=== PATIENT | male | born 1980 | race Caucasian/White ===

== ENCOUNTER 2017-04-14 14:28 | Emergency (ER) | payer MEDICAID ==
[2017-04-14 14:36] VITALS: BP 92/65; PULSE 101; RESP 16; TEMP 98.1; O2SAT 97
--- NOTE | 2017-04-14 15:50 | EDPHY ---
General Narrative: CHIEF COMPLAINT: Pain and cracked skin on hands HISTORY OF PRESENT ILLNESS: Patient complains of pain and cracked area of skin on the knuckles of both hands. This has been present for 7 months. Constant in duration. Worse with changes in weather exposure to water. It is very painful for him and he is asking for "10% relief of my pain." No numbness or tingling. No fever or chills. 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 He has not attempted any medications or any topical creams or lotions for this in 7 months. He is asking for narcotics. He has no other associated complaints or modifying factors. REVIEW OF SYSTEMS: Ten systems reviewed and are negative unless otherwise noted in the HPI PCP: None SPECIALISTS: None PAST MEDICAL HISTORY: None EXAMINATION General Appearance: Alert, no distress Head: normocephalic, atraumatic Eyes: Pupils equal and round, no conjunctival pallor or injection ENT, Mouth: Airway widely patent Neck: Normal inspection, supple Respiratory: No retractions or distress Cardiovascular: Regular rate. Symmetric radial pulses 2+. Neurological: A&O, nonfocal, no wrist drop. Good strength of the interossei in both hands. Skin: Warm and dry, there are areas of eczema and cracked skin over the PIP and the IP of both hands, posteriorly. No bleeding. No cellulitis. Extremities: Tenderness in the area of the skin eczema. No tenderness to the bones of the hands or wrist. Range of motion is symmetric in the extremities. No evidence of tenosynovitis or septic joint. Psychiatric: Mood and affect normal DIFFERENTIAL DIAGNOSES: Including but not limited to eczema, skin cracks dyshidrotic eczema cellulitis MDM: 3:45 p.m. Cracks in the skin of the knuckles on both hands consistent with dry skin. There is no evidence of contact dermatitis. No lesions of the palms of the hands that would suggest Thomson-Felix. There is no signs of infection. The patient is asking for narcotic pain medication and I have declined to prescribe any for him. I would like him to apply lotion topical steroid for 1-2 weeks. I would like him to follow up with primary care physician and/or director of religious life. The patient has been localize that he is not happy with my choice of treatment and would like to leave. He says that he is in a hurry to get back to his work shift he is missing. I provided a tube of dimethicone skin protectant, and I will provide a prescription for triamcinolone topical. - History Smoking Status: Former smoker - Objective Vital Signs: Initial Vital Signs Temperature (C) 98.1 F 04/14/17 14:33 Heart Rate 101 H 04/14/17 14:33 Respiratory Rate 16 04/14/17 14:33 Blood Pressure 92/65 L 04/14/17 14:33 O2 Sat (%) 97 04/14/17 14:33 O2 Delivery Mode Room Air Allergies/Adverse Reactions: imipramine [Imipramine] Allergy (Verified 04/20/14 15:05) Home Medications: Medication Instructions Recorded Triamcinolone 0.1% [Triamcinolone 1 armando TP TID #1 cream 04/14/17 0.1% Cream] Departure - Departure Disposition: Home, Routine, Self-Care Clinical Impression: Cracked skin, Dermatitis Condition: Good Instructions: Corticosteroids (On the skin), Eczema (ED), Dermatitis (ED) Additional Instructions: 1. Apply lotion topically several times daily 2. Topical steroid application 3 times daily 3. Follow up with primary care physician Referrals: NONE *PRIMARY CARE P,. [Primary Care Provider] - As per Instructions [facility],. [Clinic] - As per Instructions Los Bobby MD [Medical Doctor] - As per Instructions Prescriptions: Triamcinolone 0.1% [Triamcinolone 0.1% Cream] 1 armando TP TID #1 cream
== END 2017-04-14 16:02 | disposition home or self-care (01) ==
DX: L30.9 Dermatitis, unspecified (principal); Z87.891 Personal history of nicotine dependence

== ENCOUNTER 2018-05-27 10:21 | Emergency (ER) | payer MEDICAID ==
--- NOTE | 2018-05-27 10:48 | EDPHY ---
General Time Seen by Provider: 05/27/18 10:35 Narrative: CHIEF COMPLAINT: Abdominal pain, palpitation HISTORY OF PRESENT ILLNESS: Patient presents by private vehicle with complaints of abdominal pain and palpitations. Abdominal pain started 3 days ago. Periumbilical. Constant duration associated with diarrhea last night. No vomiting. No trauma or injury. No constipation. He does report palpitations 2 days ago that were not painful. He is here because "I think it's related to my food intake that day. "He called an ambulance on the 1st day that he had pain but then declined transport in symptoms with away. He has no other associated complaints or modifying factors. REVIEW OF SYSTEMS: 10 systems were reviewed and negative with the exception of the elements mentioned in the history of present illness. PCP: [facility] SPECIALISTS: None PAST MEDICAL HISTORY: Traumatic brain injury, seizure disorder, PTSD no current medications PAST SURGICAL HISTORY: Craniotomy SOCIAL HISTORY: Denies tobacco or alcohol use. Lives independently. FAMILY HISTORY: Noncontributory EXAMINATION: Vitals: Triage VS reviewed General Appearance: Alert, no distress. Well appearing. Ambulatory. Head: normocephalic, atraumatic Eyes: Pupils equal and round, no conjunctival pallor or injection ENT, Mouth: Mucous membranes moist Neck: Normal inspection, supple, non-tender Respiratory: Lungs are clear to auscultation Cardiovascular: Regular rate and rhythm no murmur Gastrointestinal: Abdomen is soft and nondistended. Mild tenderness in the umbilicus. No point tenderness of the right lower quadrant or right upper quadrant. No guarding. No palpable mass. No CVA tenderness. Bowel sounds are present. Back: non-tender, no bony abnormalities Neurological: A&O, nonfocal, normal gait Skin: Warm and dry, no rash Extremities: Nontender, no pedal edema Psychiatric: Mood and affect normal DIFFERENTIAL DIAGNOSES: Including but not limited to gastritis, gastroenteritis, enteritis, mesenteric adenitis, pancreatitis, cholecystitis, cholelithiasis, appendicitis, palpitations, electrolyte disturbance MDM: 10:35 a.m. Periumbilical abdominal pain with palpitations 2 days ago. No chest pain. No shortness of breath or fever. He did have diarrhea last night but no vomiting. His abdominal exam is benign. He has no abnormal vital signs. I have ordered EKG and laboratory studies. 12:20 p.m. Patient re-evaluated. His laboratory studies are all within normal limits. He says that the GI cocktail completely resolved his symptoms. He is asking for his IV to be taken to go home. We discussed discharge home with continuation of Maalox as needed as well as Pepcid as needed. We discussed follow up with primary care physician. We discussed ED precautions for any chest pain, palpitations shortness of breath. He is comfortable this plan. He is pain- free and discharged home stable condition. SUPERVISION: This patient was independently evaluated without direct involvement of or examination by the attending physician. CONSULTATION: None - History Smoking Status: Light smoker - Objective Vital Signs: Initial Vital Signs Temperature (C) 98.1 F 05/27/18 10:24 Heart Rate 93 05/27/18 10:24 Respiratory Rate 18 05/27/18 10:24 Blood Pressure 159/100 H 05/27/18 10:24 O2 Sat (%) 97 05/27/18 10:24 O2 Delivery Mode Room Air Allergies/Adverse Reactions: imipramine [Imipramine] Allergy (Verified 04/20/14 15:05) Home Medications: Medication Instructions Recorded NK [No Known Home Meds] 05/27/18 Laboratory Results: Laboratory Results 05/27/18 10:55 05/27/18 10:55 05/27/18 05/27/18 10:55 10:55 WBC 8.56 10^3/uL 10^3/uL (3.80-9.50) RBC 4.91 10^6/uL 10^6/uL (4.40-6.38) Hgb 15.2 g/dL g/dL (13.7-17.5) Hct 43.3 % % (40.0-51.0) MCV 88.2 fL fL (81.5-99.8) MCH 31.0 pg pg (27.9-34.1) MCHC 35.1 g/dL g/dL (32.4-36.7) RDW 12.4 % % (11.5-15.2) Plt Count 269 10^3/uL 10^3/uL (150-400) MPV 9.9 fL fL (8.7-11.7) Neut % (Auto) 65.2 % % (39.3-74.2) Lymph % (Auto) 21.7 % % (15.0-45.0) [place] % (Auto) 11.8 % % (4.5-13.0) Eos % (Auto) 0.4 % L % (0.6-7.6) Baso % (Auto) 0.5 % % (0.3-1.7) Nucleat RBC Rel Count 0.0 % % (0.0-0.2) Absolute Neuts (auto) 5.59 10^3/uL 10^3/uL (1.70-6.50) Absolute Lymphs (auto) 1.86 10^3/uL 10^3/uL (1.00-3.00) Absolute Monos (auto) 1.01 10^3/uL H 10^3/uL (0.30-0.80) Absolute Eos (auto) 0.03 10^3/uL 10^3/uL (0.03-0.40) Absolute Basos (auto) 0.04 10^3/uL 10^3/uL (0.02-0.10) Absolute Nucleated RBC 0.00 10^3/uL 10^3/uL (0-0.01) Immature Gran % 0.4 % % (0.0-1.1) Immature Gran # 0.03 10^3/uL 10^3/uL (0.00-0.10) Sodium 138 mEq/L mEq/L (135-145) Potassium 4.1 mEq/L mEq/L (3.5-5.2) Chloride 102 mEq/L mEq/L (97-110) Carbon Dioxide 26 mEq/l mEq/l (22-31) Anion Gap 10 mEq/L mEq/L (6-14) BUN 11 mg/dL mg/dL (7-23) Creatinine 0.9 mg/dL mg/dL (0.7-1.3) Estimated GFR > 60 Glucose 116 mg/dL H mg/dL (70-100) Calcium 9.8 mg/dL mg/dL (8.5-10.4) Total Bilirubin 0.4 mg/dL mg/dL (0.1-1.4) Conjugated Bilirubin 0.1 mg/dL mg/dL (0.0-0.5) Unconjugated Bilirubin 0.3 mg/dL mg/dL (0.0-1.1) AST 26 IU/L IU/L (17-59) ALT 24 IU/L IU/L (21-72) Alkaline Phosphatase 61 IU/L IU/L (38-126) Total Protein 7.1 g/dL g/dL (6.3-8.2) Albumin 4.7 g/dL g/dL (3.5-5.0) Lipase 54 IU/L IU/L (23-300) Medications Given: Discontinued Medications Al Hydroxide/Mg Hydroxide (Maalox Susp) 30 ml PO ONCE ONE Stop: 05/27/18 10:50 Last Admin: 05/27/18 11:12 Dose: 30 ml Hyoscyamine Sulfate (Levsin, Hyomax-Sl) 0.25 mg PO ONCE ONE Stop: 05/27/18 10:50 Last Admin: 05/27/18 11:12 Dose: 0.25 mg Lidocaine (Lidocaine 2% Viscous) 15 ml PO ONCE ONE Stop: 05/27/18 10:50 Last Admin: 05/27/18 11:12 Dose: 15 ml Departure - Departure Disposition: Home, Routine, Self-Care Clinical Impression: Abdominal pain Qualifiers: Abdominal location: periumbilical Qualified Code(s): R10.33 - Periumbilical pain Condition: Good Instructions: Acute Abdominal Pain (ED) Additional Instructions: 1. [id number] Maalox as needed 2. [id number] Pepcid twice daily as needed 3. Follow up with your primary care physician 4. ED precautions for chest pain, palpitations shortness of breath Referrals: [facility],. [Clinic] - As per Instructions
[2018-05-27] MEDS ORDERED: HYOSCYAMINE SULFATE 0.125 MG TAB PO ONE (10:49)
[2018-05-27] MEDS ORDERED: LIDOCAINE 2% VISCOUS 15 ML UDCUP PO ONE (10:49)
[2018-05-27] MEDS ORDERED: MAG HYDROX/AL HYDROX/SIMETH 30 ML UDCUP PO ONE (10:49)
[2018-05-27 11:07] LABS: PLATELET COUNT 269 10^3/uL (150-400)
[2018-05-27 12:40] VITALS: BP 122/69
--- NOTE | 2018-05-27 22:09 | CPEKG ---
Test Reason : OPEN Blood Pressure : / mmHG Vent. Rate : 072 BPM Atrial Rate : 072 BPM P-R Int : 122 ms QRS Dur : 110 ms QT Int : 385 ms P-R-T Axes : 043 076 055 degrees QTc Int : [address] elev, probable normal early repol pattern Confirmed by Yuridia Torrez ([id number]) on 05/27/2018 10:08:56 PM Referred By: Confirmed By:Yuridia Torrez
== END 2018-05-27 12:38 | disposition home or self-care (01) ==
DX: R10.33 Periumbilical pain (principal); R00.2 Palpitations

== ENCOUNTER 2018-05-28 11:33 | Emergency (ER) | payer MEDICAID ==
[2018-05-28 11:40] VITALS: BP 97/73
== END 2018-05-28 13:02 | disposition left against medical advice (07) ==
DX: Z53.21 Procedure and treatment not carried out due to patient leaving prior to being seen by health care provider (principal)

== ENCOUNTER 2018-07-21 11:22 | Emergency (ER) | payer MEDICAID ==
[2018-07-21 11:29] VITALS: BP 119/69
[2018-07-21] MEDS ORDERED: OXYCODONE/APAP 5/325 TAB PO ONE (12:02)
--- NOTE | 2018-07-21 12:02 | EDPHY ---
H & P Smoking Status: Never smoked Time Seen by Provider: 07/21/18 11:35 HPI/ROS: CHIEF COMPLAINT: Right thumb and 1st metacarpal pain post fall HISTORY OF PRESENT ILLNESS: 37-year-old male arrives via skateboard, complaining of acute right thumb and 1st metacarpal pain after he slipped on the ice approximately an hour ago, possible hyper abduction injury to the right thumb. Reproducible pain to the thenar eminence. Intact skin. This was a mechanical incident. No syncope. PHYSICAL EXAM (Prior to examination, patient consented to physical exam, hands were washed and my usual and customary physical exam procedures followed) 1) GENERAL: Well-developed, well-nourished, alert and oriented. Appears to be in no acute distress. 2) HEAD: Normocephalic 3) HEENT: Pupils equal, round, reactive to light bilaterally. 4) LUNGS: Breathing comfortably. 5) MUSCULOSKELETAL: Ecchymosis in tender to palpation right thenar eminence and 1st metacarpal. Pain reproducible with range of motion. Intact skin with no signs of infection. Soft compartments. Normal coloration. Remainder of hand and wrist are nontender. 6) SKIN: No signs of infection. 7) VASCULAR: pulses and cap refill present are brisk 8) NEUROLOGIC: Radial, ulnar, median nerve function intact with no deficits appreciated on exam DIFFERENTIAL DIAGNOSIS: in no particular order including but not limited to fracture, sprain, compartment syndrome Procedure: Splint A Velcro thumb spica splint was applied by ER accounts payable technician. After application of the splint I returned and re-examined the patient. The splint was adequately immobilizing the joint and distal to the splint the patient's circulation and sensation were intact. Patient shows no signs of compartment syndrome. Was given orthopedic precautions. (Vilma Varela) Constitutional: Initial Vital Signs Temperature (C) 36.8 C 07/21/18 11:26 Heart Rate 78 07/21/18 11:26 Respiratory Rate 18 07/21/18 11:26 Blood Pressure 119/69 07/21/18 11:26 O2 Sat (%) 95 07/21/18 11:26 O2 Delivery Mode Room Air Allergies/Adverse Reactions: imipramine [Imipramine] Allergy (Verified 07/21/18 11:25) Home Medications: Medication Instructions Recorded NK [No Known Home Meds] 05/27/18 MDM/Departure - MDM Imaging Results: Imaging Impressions Hand X-Ray 07/21/18 11:33 Impression: No definite fracture of the right hand. Images reviewed myself (Vilma Varela) Medications Given: Discontinued Medications Oxycodone/Acetaminophen (Percocet 5/325) 1 tab PO EDNOW ONE Stop: 07/21/18 12:03 Last Admin: 07/21/18 12:08 Dose: 1 tab ED Course/Re-evaluation: PHYSICIAN DOCUMENTATION: The patient was evaluated and managed by the Physician End Trimmer. My co- signature indicates that I have reviewed this chart and I agree with the findings and plan of care as documented. I am the secondary supervising physician. (Navi Pennington) The explained the patient the limitations of x-ray. He has been informed that non osseous injury such as ulnar collateral ligament injury is not ruled out which may be present given his mechanism. Have placed him in a Velcro thumb spica and recommend follow up with Hand surgery on-call Dr. Shamir Ching. Given analgesia. Given my usual customary orthopedic precautions instructions. Care of patient under supervision of primary supervising physician Dr Pennington with whom I discussed case. (Vilma Varela) - Depart Disposition: Home, Routine, Self-Care Clinical Impression: Injury of right thumb Qualifiers: Encounter type: initial encounter Qualified Code(s): S69.91XA - Unspecified injury of right wrist, hand and finger(s), initial encounter Condition: Good Instructions: Skier's Thumb (ED) Additional Instructions: Return to the ER immediately if you experience discoloration, have worsening pain, numbness, tingling, or any other symptoms that concern you. If you received x-rays in the emergency department today, be advised, that ligamentous , tendon, muscular, and other non-bony injury cannot be fully ruled out. [Try to keep your affected extremity elevated above the level of your chest, and keep cold packs on the affected area, for the next 48 hours.] Please wear splint as directed and follow up with a hand surgeon. Referrals: Navi Ching MD [Medical Doctor] - 2-3 days, call for appt. (Dr. Ching is a orthopedic surgeon)
== END 2018-07-21 12:15 | disposition home or self-care (01) ==
DX: S69.91XA Unspecified injury of right wrist, hand and finger(s), initial encounter (principal); V00.138A Other skateboard accident, initial encounter; Y93.51 Activity, roller skating (inline) and skateboarding; Y92.9 Unspecified place or not applicable; Y99.9 Unspecified external cause status
CPT/HCPCS: L3807

== ENCOUNTER 2018-09-05 08:05 | Emergency (ER) | payer MEDICAID ==
--- NOTE | 2018-09-05 08:09 | EDPHY ---
H & P Time Seen by Provider: 09/05/18 08:08 HPI/ROS: CHIEF COMPLAINT: Dizziness HISTORY OF PRESENT ILLNESS: Patient says he has had multiple seizures greater than 60 since a head injury in 2008. He does not take medications, uses marijuana to control them. He presents today saying he feels like he is going to have a seizure because he thinks he is dehydrated. Patient says that if he does not drink water for more than 45 min he might have a seizure. Today felt his typical aura which is dizziness and little bit of tingling on his skin which she thinks is triggered by exposure to car exhaust from an idling vehicle outside his trailer. When I evaluate him he says he feels back to normal. He says he does not currently feel like he is going to have a seizure anymore. REVIEW OF SYSTEMS: Eye: no change in vision ENT: no sore throat Cardiac: no chest pain or syncope Pulmonary: no cough or SOB Abdomen: no vomiting, diarrhea, abdominal pain Musculoskeletal: no back pain Skin: no rash Neuro: no headache Constitutional: no fever : no urinary symptoms A comprehensive 10 point review of systems is otherwise negative aside from elements mentioned in the history of present illness. PAST MEDICAL HISTORY: Seizure disorder after head injury in 2008 Social history: Arrives by EMS, [facility] General Appearance: Alert and conversant, cooperative. Eyes: No scleral icterus. ENT, Mouth: Normal mucous membranes. No tongue laceration or abrasion. Respiratory: Normal respiratory effort, breath sounds equal, lungs are clear to auscultation. Cardiovascular: Regular rate and rhythm. Gastrointestinal: Abdomen is soft and non tender. Neurological: Alert, face symmetric, normal motor and sensory in extremities. Not tremulous. Fluent speech. Ambulatory. Skin: Warm and dry, no rashes. Musculoskeletal: No neck stiffness. Psychiatric: Not agitated. Emergency Department course/MDM: Patient presented with dizziness and skin tingling which is his typical aura but does not have any evidence of tachycardia or tremor, no seizure in the emergency department. He says he feels comfortable going home. Smoking Status: Never smoked Constitutional: Initial Vital Signs Temperature (C) 36.9 C 09/05/18 08:07 Heart Rate 78 09/05/18 08:07 Respiratory Rate 18 09/05/18 08:07 Blood Pressure 120/81 H 09/05/18 08:07 O2 Sat (%) 99 09/05/18 08:07 O2 Delivery Mode Room Air O2 (L/minute) 2 Allergies/Adverse Reactions: imipramine [Imipramine] Allergy (Verified 07/21/18 11:25) Home Medications: Medication Instructions Recorded NK [No Known Home Meds] 05/27/18 Departure - Departure Disposition: Home, Routine, Self-Care Clinical Impression: Dizziness Condition: Good Instructions: Epilepsy (ED) Referrals: [facility],. [Clinic] - As per Instructions
[2018-09-05 08:37] VITALS: BP 120/81
== END 2018-09-05 08:40 | disposition home or self-care (01) ==
LOC: EDUNIT#
DX: R42 Dizziness and giddiness (principal); G40.909 Epilepsy, unspecified, not intractable, without status epilepticus

== ENCOUNTER 2018-11-10 18:28 | Emergency (ER) | payer MEDICAID ==
--- NOTE | 2018-11-10 19:30 | EDPHY ---
General Time Seen by Provider: 11/10/18 18:48 Narrative: CLINICAL IMPRESSION: Lumbosacral strain ASSESSMENT/PLAN: 38-year-old male presents to the emergency department with left-sided low back pain after helping a friend lift a trailer off the tailgate. Patient is standing in the room, ambulates to x-ray, has no reported bowel or bladder incontinence, saddle anesthesia, urinary retention, scrotal discomfort, perineal anesthesia, urinary retention, lower extremity weakness or paresthesias. X-ray show no evidence of compression deformity and degenerative changes noted at L4-5. No midline pain. Negative straight leg raise. No clinical signs to suggest cauda equina, epidural abscess, occult fracture, infection or neurovascular injury. Patient refused analgesics in the ED, we discussed rice treatment and rest at home, PCP follow-up encouraged, warning signs return to ED sooner discussed discharge. DIFFERENTIAL DX: Differential includes but not limited to lumbosacral strain, sciatica, herniated disc ED PROCEDURES: See lab and/or imaging results below ED COURSE: 7:45 p.m.: X-ray show degenerative changes without acute fracture. CHIEF COMPLAINT: Low back pain HPI: 38-year-old male with a past medical history of seizures presents to the emergency department with acute low back pain after helping a friend remove a trailer from a trailer hitch this afternoon. Patient reports feeling the pain as he was jerking the trailer off the hitch. He states pain is improved if he is standing still and walking like a statue, worsened with forward bending. No prior back injury or surgery. No reported weakness or numbness to the legs or groin. No bowel or bladder incontinence or urinary retention. No saddle anesthesia. No abdominal pain. He did not take anything for pain and does not wish to have anything at this time. He is concerned that he "dislocated 1 of his vertebrae" and would like an x-ray. PAST MEDICAL HISTORY: Seizure See triage summary and nurse notes for addition applicable history Pertinent Past Surgical History: TBI/CHI REVIEW OF SYSTEMS: A full 10 point review of systems was negative except for those mentioned in HPI. PHYSICAL EXAM: General Appearance: Alert, oriented, appropriate, cooperative, standing, walking around the room in no obvious distress NAD, vital signs stable Respiratory: There are no retractions, lungs are clear to auscultation. Cardiac: Regular rate and rhythm, no murmurs or gallops. Gastrointestinal: [Abdomen is soft, nontender Skin: Warm, dry, no rashes, no nodules on palpation. Musculoskeletal: Reproducible left paraspinal and sacral iliac pain, worse with forward flexion and rotation. No midline pain. Patellar DTRs 2+ bilaterally. Gait steady with no ataxia. Neurovascular exam of bilateral lower extremities intact. MEDICAL DECISION MAKING: Patient was seen independently. Secondary supervising physician at time of evaluation was: Dr. Wilkins. Diagnosis: Lumbosacral strain. New, requires workup Summary: See Assessment and Plan for summary of ED visit Independent visualization of images, tracing, or specimens: Yes. Patient Progress: Improved, stable for discharge. 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 No evidence for fracture. - History Smoking Status: Never smoked - Objective Vital Signs: Initial Vital Signs Temperature (C) 36.9 C 11/10/18 18:35 Heart Rate 86 11/10/18 18:35 Respiratory Rate 12 11/10/18 18:35 Blood Pressure 109/44 L 11/10/18 18:35 O2 Sat (%) 95 11/10/18 18:35 O2 Delivery Mode Room Air Allergies/Adverse Reactions: imipramine [Imipramine] Allergy (Verified 07/21/18 11:25) Home Medications: Medication Instructions Recorded NK [No Known Home Meds] 05/27/18 Medications Given: Discontinued Medications Ibuprofen (Motrin) 600 mg PO EDNOW ONE Stop: 11/10/18 19:59 Last Admin: 11/10/18 20:02 Dose: 600 mg Departure - Departure Disposition: Home, Routine, Self-Care Clinical Impression: Lumbar strain Condition: Good Instructions: Low Back Strain (ED) Additional Instructions: DISCHARGE INSTRUCTIONS FROM YOUR DOCTOR Thank you for visiting our emergency department today. You were treated by a physician title i assistant today and your case was reviewed with our ED Attending physician. Please keep in mind that discharge from the emergency department does not mean that there is nothing wrong - it simply means that we have not identified an emergency condition that requires further evaluation or treatment in the hospital. You should always plan to follow up with primary care for re- evaluation of your condition in the next 2-3 days. If you have been referred to a specialist, please call as soon as possible (today or tomorrow) to schedule your follow up appointment at the appropriate time. X-RAY SHOW NO EVIDENCE OF ACUTE FRACTURE OR DISLOCATION. YOU HAVE SOME DEGENERATIVE CHANGES TO THE L4/L5 REGION. PLEASE REST, CONSIDER USING ICE ALTERNATING WITH HEAT, IBUPROFEN OR TYLENOL NEEDED FOR PAIN. FOLLOW UP WITH A PRIMARY CARE DOCTOR NEXT WEEK. RETURN TO THE EMERGENCY DEPARTMENT SOONER FOR WORSENING OR SEVERE BACK PAIN, INABILITY TO WALK, NUMBNESS OR WEAKNESS TO THE LEGS, BOWEL OR BLADDER INCONTINENCE, INABILITY TO EMPTY YOUR BLADDER, FEVERS OR ANY OTHER CONCERNS. People present with illnesses and injuries in different ways, and it is always possible that we have missed something. You may always return for re-evaluation if symptoms worsen or if they are not improving or if you develop new/different symptoms. Again, thank you for choosing our emergency department. We hope that you feel better. Referrals: NONE *PRIMARY CARE P,. [Primary Care Provider] - As per Instructions Behzad Goodman, [Medical Doctor] - 2-3 days, call for appt.
[2018-11-10] MEDS ORDERED: IBUPROFEN 600 MG TAB PO ONE (19:58)
[2018-11-10 20:03] VITALS: BP 112/68
== END 2018-11-10 20:03 | disposition home or self-care (01) ==
DX: S39.012A Strain of muscle, fascia and tendon of lower back, initial encounter (principal); X50.0XXA Overexertion from strenuous movement or load, initial encounter